=== PATIENT | male | born 1980 | race Caucasian/White ===

== ENCOUNTER 2020-03-01 22:11 | Emergency (ER) | payer SELFPAY ==
[~2020-03-01] VITALS: Ht 171.4 cm; Wt 69.0 kg
[~2020-03-01 22:11] MED LIST: LIDOcaine 1% W/epiNEPHrine 1:100,000 20ml vial ONE
[2020-03-01 22:13] VITALS: BP 149/86
[2020-03-01] MEDS ORDERED: sulfamethoxazole/trimethoprim DS (800/160mg) tablet PO ONE (23:00)
[2020-03-01] MEDS ORDERED: ondansetron 4mg rapidly disintigrating tab PO ONE (23:00)
[2020-03-01] MEDS ORDERED: TETanus/Pertussis (Acell)/Diphther VAC/PF (Tdap-Adult) 0.5ml syringe IMVAC ONE (23:00)
[2020-03-01] MEDS ORDERED: SULF1TAB49 PO (23:29)
== END 2020-03-01 23:48 | disposition home or self-care (01) ==
LOC: ER 22:12
DX: L02.214 Cutaneous abscess of groin (principal); L03.314 Cellulitis of groin
CPT/HCPCS: 10060; 99283